=== PATIENT | male | born 1960 | race Two or more races ===

== ENCOUNTER 2020-01-10 11:05 | Outpatient (CLI) | payer OTHER ==
[~2020-01-10 11:05] MED LIST: ZANTAC300 MG PO; ZOFRAN4 MG PO
== END 2020-01-10 16:04 | disposition home or self-care (01) ==
LOC: MRI 11:05
PROVIDERS: ATTEND Orthopaedic Surgery
DX: M43.17 Spondylolisthesis, lumbosacral region (principal); M48.07 Spinal stenosis, lumbosacral region; M54.5 Low back pain
CPT/HCPCS: 72148

== ENCOUNTER 2020-01-12 13:19 | Outpatient (CLI) | payer OTHER | END 2020-01-12 13:33 | disposition home or self-care (01) | LOC: MRI 13:19 | PROVIDERS: ATTEND Orthopaedic Surgery | DX: M17.12 Unilateral primary osteoarthritis, left knee (principal); M25.562 Pain in left knee | CPT/HCPCS: 73721 ==

== ENCOUNTER 2023-01-21 07:22 | Outpatient (CLI) | payer OTHER | END 2023-01-21 07:32 | disposition home or self-care (01) | LOC: RX STUDY 07:22 | PROVIDERS: ATTEND Internal Medicine Gastroenterology | DX: R13.19 Other dysphagia (principal) ==